=== PATIENT | male | born 1940 | race Caucasian/White ===

== ENCOUNTER 2023-09-03 12:20 | Day surgery (SDC) | payer MEDICARE, BC ==
[~2023-09-03] VITALS: Ht 170.2 cm; Wt 91.6 kg
[~2023-09-03 12:20] MED LIST: ACET-683 PO; ATOR1TAB19; DIGO0.123; ELIQ2.5T; ENTR1TAB7; EPLE25TA; IBUP-1114 PO; JARD1TAB; METO1TAB32; NS 1,000 ML IV ONE; TORS20TA2; TRAM50TA2
[2023-09-03] MEDS ORDERED: UBIQ200C3 PO (13:12)
[2023-09-03 13:45] VITALS: TEMP 96.6
[2023-09-03 14:03] VITALS: BP 106/65; O2SAT 96
== END 2023-09-03 14:03 | disposition home or self-care (01) ==
LOC: M OPP 12:20
PROVIDERS: ATTEND Internal Medicine Gastroenterology
DX: R13.10 Dysphagia, unspecified (principal); K25.9 Gastric ulcer, unspecified as acute or chronic, without hemorrhage or perforation; K44.9 Diaphragmatic hernia without obstruction or gangrene; K29.70 Gastritis, unspecified, without bleeding; I48.91 Unspecified atrial fibrillation; I10 Essential (primary) hypertension; E78.00 Pure hypercholesterolemia, unspecified; Z79.899 Other long term (current) drug therapy